=== PATIENT | female | born 1990 | race Native Hawaiian/Other Pacific Islander ===

== ENCOUNTER 2017-10-10 17:29 | Emergency (ER) | payer OTHER ==
[~2017-10-10] VITALS: Ht 162.6 cm; Wt 61.7 kg
[2017-10-10 19:02] VITALS: BP 125/70; TEMP 98
== END 2017-10-10 19:02 | disposition home or self-care (01) ==
LOC: ED 17:29
DX: S09.90XA Unspecified injury of head, initial encounter (principal); V49.40XA Driver injured in collision with unspecified motor vehicles in traffic accident, initial encounter
CPT/HCPCS: 81025; 99283

== ENCOUNTER 2019-11-07 04:42 | Emergency (ER) | payer OTHER ==
[~2019-11-07] VITALS: Ht 160 cm; Wt 72.6 kg
[2019-11-07 05:37] LABS: PLATELET COUNT 262 K/uL (152-353)
[2019-11-07 05:41] LABS: POTASSIUM 3.7 mmol/L (3.6-5.2)
[2019-11-07 06:55] VITALS: BP 125/85; TEMP 98.9
== END 2019-11-07 06:55 | disposition home or self-care (01) ==
LOC: ED 04:42
PROVIDERS: Family Medicine
DX: N39.0 Urinary tract infection, site not specified (principal)
CPT/HCPCS: 36415; 80053; 81000; 85027; 87077; 87086; 87088; 87186; 96372; 99283; J0696; J1885

== ENCOUNTER 2020-09-06 10:14 | Outpatient (CLI) | payer OTHER ==
[2020-09-06 11:24] LABS: PLATELET COUNT 210 K/uL (152-353)
[2020-09-06 12:00] LABS: POTASSIUM 3.5 mmol/L (3.6-5.2)
== END 2020-09-06 22:09 | disposition home or self-care (01) ==
LOC: US 10:14
PROVIDERS: ATTEND Nurse Practitioner Family
DX: R10.11 Right upper quadrant pain (principal); R19.7 Diarrhea, unspecified; R10.13 Epigastric pain
CPT/HCPCS: 36415; 80053; 82150; 83690; 85027; 86677